=== PATIENT | female | born 1970 | race American Indian/Alaskan Native ===

== ENCOUNTER 2021-05-05 12:37 | Emergency (ER) | payer SELFPAY ==
[2021-05-05 13:29] VITALS: BP 139/73
[2021-05-05] MEDS ORDERED: KETOROLAC 60 MG/2 ML INJ IM ONE (14:39)
--- NOTE | 2021-05-05 16:03 | Cat Scan Report ---
CT head/brain wo con INDICATION: posterior head pain. TECHNIQUE: All CT scans at this location are performed using CT dose reduction for ALARA by means of automated e xposure control. COMPARISON: None available. FINDINGS: There is no evidence of hemorrhage, hydrocephalus, brain edema, or mass effect/mass lesion. There is overall normal brain formation and brain volume for the patient's age. Ventricular and cisternal/sulc al size is normal for age. The included paranasal sinuses and mastoid air cells are clear. The orbits appear unremarkable. IMPRESSION: 1. No acute findings. Signer Name: Jonathan Meek MD Signed: 05/05/2021 3:58 PM Workstation Name: [id number]
--- NOTE | 2021-05-05 16:04 | Emergency Department Report ---
ED General Adult HPI - General Chief complaint: Neck Pain/Injury Stated complaint: HEAD/NECK/BORIS SHOULDER PAIN Time Seen by Provider: 05/05/21 13:49 Source: patient Mode of arrival: Ambulatory Limitations: No Limitations - History of Present Illness Initial comments: 51-year-old -Malagasy female patient presents with complaints of upper neck pain and headache for the past week and a half. She reports a history of hypertension and neck surgery. She denies any new injuries, head trauma, loss of consciousness, numbness/tingling/weakness in her limbs, difficulty with speech/ambulation, or memory loss. She states since her symptoms started, she has had fogginess in her thinking. Patient states headaches are now normal for her. She has not tried any OTC medications for symptoms. Neck pain is described as a tightness and worsens with movement. Patient also denies any fever/chills/sweats, cough, or difficulty with leg movement. Severity scale (0 -10): 8 - Related Data Previous Rx's Medication Instructions Recorded Last Taken Type Diclofenac Sodium 50 mg PO TID PRN #21 tablet. 05/05/21 Unknown Rx methOCARBAMOL [Robaxin TAB] 500 - 1,000 mg PO TID PRN #30 05/05/21 Unknown Rx tablet Allergies Allergy/AdvReac Type Severity Reaction Status Date / Time sulfamethoxazole Allergy Hives Verified 05/05/21 13:26 [From Bactrim] trimethoprim [From Bactrim] Allergy Hives Verified 05/05/21 13:26 ED Review of Systems ROS: Stated complaint: HEAD/NECK/BORIS SHOULDER PAIN Other details as noted in HPI Constitutional: denies: chills, diaphoresis, fever, malaise, weakness Eyes: denies: vision change Respiratory: denies: cough, shortness of breath Cardiovascular: denies: chest pain Gastrointestinal: denies: abdominal pain, nausea, vomiting Musculoskeletal: denies: joint swelling Skin: denies: change in color Neurological: headache. denies: weakness, numbness, paresthesias, abnormal gait Hematological/Lymphatic: denies: swollen glands ED Past Medical Hx - Past Medical History Hx Hypertension: Yes - Surgical History Additional Surgical History: NECK 1 1/2 YEAR AGO - Medications Home Medications: Home Medications Medication Instructions Recorded Confirmed Last Taken Type Diclofenac Sodium 50 mg PO TID PRN #21 tablet. 05/05/21 Unknown Rx methOCARBAMOL [Robaxin TAB] 500 - 1,000 mg PO TID PRN #30 05/05/21 Unknown Rx tablet ED Physical Exam - General Limitations: No Limitations General appearance: alert, in no apparent distress, obese - Head Head exam: Present: atraumatic, normocephalic - Eye Eye exam: Present: normal appearance, PERRL, EOMI. Absent: scleral icterus - Neck Neck exam: Present: tenderness (Upper vertebral tenderness to palpation noted and bilateral paraspinal muscle tenderness noted), full ROM, other (Negative Brudzinski and Kernig's signs). Absent: meningismus - Respiratory Respiratory exam: Present: normal lung sounds bilaterally. Absent: respiratory distress - Cardiovascular Cardiovascular Exam: Present: regular rate, normal rhythm. Absent: systolic murmur, diastolic murmur, rubs, gallop - Extremities Exam Extremities exam: Present: full ROM - Back Exam Back exam: Present: normal inspection - Neurological Exam Neurological exam: Present: alert, oriented X3, CN II-XII intact, normal gait. Absent: motor sensory deficit - Expanded Neurological Exam Expanded Cerebellar function: Finger to Nose: Normal, Heel to Velasco: Normal, Romberg: Normal Sensory exam: Upper Extremity Light Touch: Normal, Lower Extremity Light Touch: Normal Motor strength exam: RUE: 5, LUE: 5, RLE: 5, LLE: 5 Best Eye Response (Caio): (4) open spontaneously Best Motor Response (Lyle): (6) obeys commands Best Verbal Response (Lyle): (5) oriented Caio Total: 15 - Psychiatric Psychiatric exam: Present: normal affect, normal mood - Skin Skin exam: Present: warm, dry, intact, normal color. Absent: rash ED Course Vital Signs 05/05/21 05/05/21 13:25 14:59 Temperature 98.2 F Pulse Rate 83 Respiratory 20 16 Rate Blood Pressure 139/73 O2 Sat by Pulse 98 Oximetry ED Medical Decision Making - Medical Decision Making 51-year-old -Malagasy female patient presents with complaints of upper neck pain and headache for the past week and a half. She reports a history of hypertension and neck surgery. She denies any new injuries, head trauma, loss of consciousness, numbness/tingling/weakness in her limbs, difficulty with speech/ambulation, or memory loss. She states since her symptoms started, she has had fogginess in her thinking. Patient states headaches are now normal for her. She has not tried any OTC medications for symptoms. Neck pain is described as a tightness and worsens with movement. Patient also denies any fever/chills/sweats, cough, or difficulty with leg movement. Patient rates her headache as 8/10 in severity Patient is neurologically intact on exam. CT head is negative for any acute intracranial abnormalities. Patient given Toradol and states her symptoms have resolved. Her vitals are within normal limits, she is well-appearing, she is stable for discharge home. Patient to follow-up with her PCP in 3 days. Strict return precautions were discussed in detail with patient who verbalizes understanding. Critical care attestation.: If time is entered above; I have spent that time in minutes in the direct care of this critically ill patient, excluding procedure time. ED Disposition Clinical Impression: Acute tension headache, Neck pain Disposition: DC- TO HOME OR SELFCARE Is pt being admited?: No Condition: Stable Instructions: Tension Headache, Adult, Neck Exercises Prescriptions: Diclofenac Sodium 50 mg PO TID PRN #21 tablet. PRFloresita Reason: Pain methOCARBAMOL [Robaxin TAB] 500 - 1,000 mg PO TID PRN #30 tablet PRN Reason: Muscle spasm/tightness Referrals: PRIMARY CARE, [Referring] - 3-5 Days
[2021-05-05] MEDS ORDERED: dexAMETHasone 4 MG/ML VIAL IM STA (16:09)
== END 2021-05-05 16:36 | disposition home or self-care (01) ==
LOC: ED 12:37
DX: G44.209 Tension-type headache, unspecified, not intractable (principal); M54.2 Cervicalgia; I10 Essential (primary) hypertension; Z79.899 Other long term (current) drug therapy; Z88.2 Allergy status to sulfonamides; Z88.8 Allergy status to other drugs, medicaments and biological substances; Z98.890 Other specified postprocedural states
CPT/HCPCS: 70450; 96372; 99283; J1100; J1885

== ENCOUNTER 2021-09-27 08:28 | Emergency (ER) | payer BC ==
--- NOTE | 2021-09-27 09:30 | Emergency Department Report ---
ED Dysuria HPI - HPI Stated Complaint: FREQUENT URINE/RT HIP PAIN Time Seen by Provider: 09/27/21 09:29 Location of Discomfort: Other Severity: Mild Symptoms: Dysuria: No, Frequency: No, Suprapubic Pain: No, Flank Pain: No, Fever: No, Hematuria: No, Abdominal Pain: No, Previous UTI's: No Other History: 51 YO COME TO ER WITH URINARY FREQUENCY WITH PAIN RADIATING UP TO RIGHT HIP. NO FEVER/CHILLS. NO N/V/D. AMBULATORY TO ER ED Review of Systems ROS: Stated complaint: FREQUENT URINE/RT HIP PAIN Other details as noted in HPI Comment: All other systems reviewed and negative ED Past Medical Hx - Past Medical History Previous Medical History?: Yes Hx Hypertension: Yes - Surgical History Past Surgical History?: Yes Additional Surgical History: NECK 1 1/2 YEAR AGO - Family History Family history: no significant - Social History Smoking Status: Never Smoker Substance Use Type: None - Medications Home Medications: Home Medications Medication Instructions Recorded Confirmed Last Taken Type Cyclobenzaprine [Flexeril] 10 mg PO TID PRN #10 tablet 09/27/21 Unknown Rx Ibuprofen [Motrin] 800 mg PO Q8HR PRN #30 tablet 09/27/21 Unknown Rx predniSONE [Deltasone] 20 mg PO DAILY #5 tablet 09/27/21 Unknown Rx Dysuria Exam - Exam General: Vital signs noted. No distress. Alert and acting appropriately. Exam: Yes Moist Mucous Membranes, No CVA Tenderness, No Abdominal Tenderness, No Rigidity or Guarding ED Medical Decision Making - Medical Decision Making Vital Signs 09/27/21 09:31 Temperature 98.4 F Pulse Rate 69 Respiratory 16 Rate Blood Pressure 124/47 [Right] O2 Sat by Pulse 100 Oximetry Lab Results 09/27/21 Range/Units Unknown Urine Color Yellow (Yellow) Urine Turbidity Clear (Clear) Urine pH 6.0 (5.0-7.0) Ur Specific [place] 1.016 (1.003-1.030) Urine Protein <15 mg/dl (Negative) mg/dL Urine Glucose (UA) Neg (Negative) mg/dL Urine Ketones Neg (Negative) mg/dL Urine Blood Neg (Negative) Urine Nitrite Neg (Negative) Urine Bilirubin Neg (Negative) Urine Urobilinogen < 2.0 (<2.0) mg/dL Ur Leukocyte Esterase Neg (Negative) Urine WBC (Auto) 2.0 (0.0-6.0) /HPF Urine RBC (Auto) 1.0 (0.0-6.0) /HPF U Epithel Cells (Auto) 4.0 (0-13.0) /HPF Urine Bacteria (Auto) 1+ (Negative) /HPF Urine Mucus Few /HPF UA NOTED NO EVIDENCE STONE/UTI 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 NO TRAUMA OR FALL. WILL TREAT FOR MUSCULOSKELETAL PAIN AND SHE WILL FOLLOW UP WITH DR KELLY. SHE DEFERRED XRAY AT THIS TIME DC HOME WITH DC PLAN OF CARE INCLUDING DIET, ACTIVITY, MEDS AND FOLLOW UP. SHE VERBALIZES UNDERSTANDING OF PLAN OF CARE. - Differential Diagnosis RO UTI Critical care attestation.: If time is entered above; I have spent that time in minutes in the direct care of this critically ill patient, excluding procedure time. ED Disposition Clinical Impression: Right hip pain, Urinary frequency Disposition: 01 HOME / SELF CARE / HOMELESS Is pt being admited?: No Does the pt Need Aspirin: No Condition: Stable Instructions: Abdominal Pain (ED) Additional Instructions: FOLLOW UP WITH DR KELLY WE DISCUSSED MEDS ORDERED TODAY Prescriptions: predniSONE [Deltasone] 20 mg PO DAILY #5 tablet Cyclobenzaprine [Flexeril] 10 mg PO TID PRN #10 tablet PRN Reason: Muscle Spasm Ibuprofen [Motrin] 800 mg PO Q8HR PRN #30 tablet PRN Reason: Pain, Moderate (4-6) Referrals: CORY KELLY MD [Staff Physician] - 3-5 Days Forms: Work/School Release Form(ED) Time of Disposition: 12:27
[2021-09-27 09:32] VITALS: BP 124/47
[2021-09-27 12:12] LABS: Bacteria,Urine 1+ /HPF (Negative); Bilirubin,Urine NEG (Negative); Blood,Urine NEG (Negative); Color,Urine Yellow (Yellow); Mucus,Urine FEW /HPF; Protein,Urine <15 mg/dL mg/dL (Negative); Urobilinogen,Urine < 2.0 mg/dL (<2.0)
[2021-09-27] MEDS ORDERED: KETOROLAC 60 MG/2 ML INJ IM ONE (12:30)
== END 2021-09-27 12:34 | disposition home or self-care (01) ==
LOC: ED 08:28
DX: R35.0 Frequency of micturition (principal); M25.551 Pain in right hip; I10 Essential (primary) hypertension
CPT/HCPCS: 81001; 99283

== ENCOUNTER 2022-04-04 09:04 | Emergency (ER) | payer SELFPAY ==
--- NOTE | 2022-04-04 10:46 | Emergency Department Report ---
Chief Complaint: Chest Pain Stated Complaint: CHEST PAIN/SHOULDER PAIN - HPI History of Present Illness: 51 Y f report chest pain today with right side neck pain - ROS Review of Systems: right side chest pain - Exam Vital Signs: Vital Signs 04/04/22 10:38 Temperature 97.8 F Pulse Rate 63 Respiratory 16 Rate Blood Pressure 141/100 O2 Sat by Pulse 99 Oximetry MSE screening note: Focused history and physical exam performed. Due to findings the following was ordered: Active Orders 24 hr Category Date Time Status EKG (12 lead) Stat Cardiology 04/04/22 10:43 Ordered Tech to do EKG .once Care 04/04/22 10:43 Ordered Complete Blood Count Auto Diff Stat Lab 04/04/22 10:43 Ordered Comprehensive Metabolic Panel Stat Lab 04/04/22 10:43 Ordered Troponin T Stat Lab 04/04/22 10:43 Ordered XR chest 1V ap Stat X-Ray 04/04/22 10:43 Ordered ED Disposition for MSE Condition: Stable
--- NOTE | 2022-04-04 11:19 | XRay Report ---
CHEST 2 VIEWS INDICATION / CLINICAL INFORMATION: chest pain. COMPARISON: None available. FINDINGS: SUPPORT DEVICES: None. HEART / MEDIASTINUM: No significant abnormality. LUNGS / PLEURA: No significant pulmonary or pleural abnormality. No pneumothorax. ADDITIONAL FINDINGS: No significant additional findings. IMPRESSION: 1. No acute findings. Signer Name: Jonathan Meek MD Signed: 04/04/2022 11:14 AM Workstation Name: [id number]
--- NOTE | 2022-04-04 11:56 | Emergency Department Report ---
ED Chest Pain HPI - General Chief Complaint: Chest Pain Stated Complaint: CHEST PAIN/SHOULDER PAIN Time Seen by Provider: 04/04/22 11:52 Source: patient Mode of arrival: Ambulatory Limitations: No Limitations - History of Present Illness Initial Comments: Patient is a 51-year-old female that comes to the emergency room complaining of right-sided chest and neck pain. She works as a WATERWORKS OPERATOR. She denies any nausea vomiting or diaphoresis. She states the pain is sharp and dull and radiates to her right arm. She denies fever. Endorses chills. Has a history of hypertension. She also smokes cigarettes. She is mildly obese. She has had previous neck surgery for spinal fusion. Her mother and father are both of cancer. She has no known family history of coronary artery disease. She states the pain is made better by warm baths and is worse with movement. MD Complaint: chest pain -: Gradual, days(s) Pain Location: right chest Pain Radiation: RUE Severity: mild Quality: tightness, sharp Consistency: intermittent Improves With: remaining still Worsens With: movement re: denies: nausea, vomting, diaphoresis, dyspnea, sense of impending doom Other Symptoms: denies: cough, fever, syncope, rash, acid taste in mouth, leg swelling, palpitations, burping Treatments Prior to Arrival: none Aspirin use within the Past 7 Days: (0) No - Related Data On Oral Contraceptives: No Previous Rx's Medication Instructions Recorded Last Taken Type Cyclobenzaprine [Flexeril] 10 mg PO TID PRN #10 tablet 09/27/21 Unknown Rx Ibuprofen [Motrin] 800 mg PO Q8HR PRN #30 tablet 09/27/21 Unknown Rx predniSONE [Deltasone] 20 mg PO DAILY #5 tablet 09/27/21 Unknown Rx Allergies Allergy/AdvReac Type Severity Reaction Status Date / Time sulfamethoxazole Allergy Hives Verified 04/04/22 10:41 [From Bactrim] trimethoprim [From Bactrim] Allergy Hives Verified 04/04/22 10:41 Heart Score - HEART Score History: Slightly suspicious EKG: Normal Age: 45-65 Risk factors: 1-2 risk factors Troponin: < normal limit HEART Score: 2 - EKG Read Time Time EKG Completed: 10:42 EKG Read Time: 10:42 - Critical Actions Critical Actions: 0-3 pts:0.9-1.7%risk of adverse cardiac event.Candidate for discharge ED Review of Systems ROS: Stated complaint: CHEST PAIN/SHOULDER PAIN Other details as noted in HPI Comment: All other systems reviewed and negative ED Past Medical Hx - Past Medical History Previous Medical History?: Yes Hx Hypertension: Yes - Surgical History Past Surgical History?: Yes Additional Surgical History: NECK 1 1/2 YEAR AGO - Family History Family history: other (Mother and father of cancer) - Social History Smoking Status: Current Every Day Smoker Substance Use Type: None - Medications Home Medications: Home Medications Medication Instructions Recorded Confirmed Last Taken Type Cyclobenzaprine [Flexeril] 10 mg PO TID PRN #10 tablet 09/27/21 Unknown Rx Ibuprofen [Motrin] 800 mg PO Q8HR PRN #30 tablet 09/27/21 Unknown Rx predniSONE [Deltasone] 20 mg PO DAILY #5 tablet 09/27/21 Unknown Rx ED Physical Exam - General Limitations: No Limitations General appearance: alert, in no apparent distress - Head Head exam: Present: atraumatic, normocephalic - Eye Eye exam: Present: normal appearance - ENT ENT exam: Present: mucous membranes moist - Neck Neck exam: Present: normal inspection - Respiratory Respiratory exam: Present: normal lung sounds bilaterally. Absent: respiratory distress - Cardiovascular Cardiovascular Exam: Present: regular rate, normal rhythm. Absent: systolic m urmur, diastolic murmur, rubs, gallop - GI/Abdominal GI/Abdominal exam: Present: soft, normal bowel sounds - Extremities Exam Extremities exam: Present: normal inspection - Back Exam Back exam: Present: normal inspection - Neurological Exam Neurological exam: Present: alert, oriented X3 - Psychiatric Psychiatric exam: Present: normal affect, normal mood - Skin Skin exam: Present: warm, dry, intact, normal color. Absent: rash ED Course Vital Signs 04/04/22 10:38 Temperature 97.8 F Pulse Rate 63 Respiratory 16 Rate Blood Pressure 141/100 O2 Sat by Pulse 99 Oximetry LINETTE score - Linette Score Age > 65: (0) No Aspirin use within the Past 7 Days: (0) No 3 or more CAD Risk Factors: (0) No 2 or more Angina events in past 24 hrs: (0) No Known CAD with more than 50% Stenosis: (0) No Elevated Cardiac Markers: (0) No ST Deviation Greater than 0.5mm: (0) No LINETTE Score: 0 ED Medical Decision Making - Lab Data Result diagrams: 04/04/22 12:32 04/04/22 12:32 - EKG Data -: EKG Interpreted by Me EKG shows normal: sinus rhythm - EKG Data When compared to previous EKG there are: no significant change Interpretation: no acute changes - Radiology Data Radiology results: report reviewed, image reviewed No acute process - Medical Decision Making Vital Signs 04/04/22 10:38 Temperature 97.8 F Pulse Rate 63 Respiratory 16 Rate Blood Pressure 141/100 O2 Sat by Pulse 99 Oximetry Patient's blood pressure noted to be elevated on exam. She reports that she takes losartan and HCTZ Patient has been counseled on cigarette smoking cessation On discharge exam patient denied any pain. Diagnostic studies including EKG chest x-ray labs reviewed with patient. Vital Signs 04/04/22 10:38 Temperature 97.8 F Pulse Rate 63 Respiratory 16 Rate Blood Pressure 141/100 O2 Sat by Pulse 99 Oximetry Labs 04/04/22 04/04/22 12:32 12:32 WBC 6.9 RBC 4.68 Hgb 14.6 H Hct 43.6 H MCV 93 MCH 31 MCHC 34 RDW 14.4 Plt Count 404 Lymph % (Auto) 40.4 H [place] % (Auto) 7.5 H Eos % (Auto) 0.9 Baso % (Auto) 1.0 Lymph # (Auto) 2.8 [place] # (Auto) 0.5 Eos # (Auto) 0.1 Baso # (Auto) 0.1 Seg Neutrophils % 50.2 Seg Neutrophils # 3.4 Sodium 139 Potassium 4.4 Chloride 100.3 Carbon Dioxide 26 Anion Gap 17 BUN 16 Creatinine 0.8 Estimated GFR > 60 BUN/Creatinine Ratio 20 Glucose 79 Calcium 9.7 Total Bilirubin 0.30 AST 14 ALT 13 Alkaline Phosphatase 68 Troponin T < 0.010 Total Protein 6.8 Albumin 4.6 Albumin/Globulin Ratio 2.1 Patient verbalizes understanding of discharge plan of care including diet, activity, medications and follow-up. She is going home with conservative management including [id number] pain relief. Warm compresses and warm baths. She has been given a follow-up with primary care. She is also been instructed to stop smoking and to take her blood pressure medications as prescribed. She verbalizes understanding - Differential Diagnosis Musculoskeletal versus ACS Critical care attestation.: If time is entered above; I have spent that time in minutes in the direct care of this critically ill patient, excluding procedure time. ED Disposition Clinical Impression: Atypical chest pain, Hx of malignant hypertension, Obese, Smoker Disposition: 01 HOME / SELF CARE / HOMELESS Is pt being admited?: No Does the pt Need Aspirin: No Condition: Stable Instructions: Nonspecific Chest Pain, Adult Additional Instructions: Continue your home blood pressure medicine follow up with pcp referral below labs are all normal today Referrals: RANDOLPH DONAHUE MD [Staff Physician] - 3-5 Days Time of Disposition: 13:59
--- NOTE | 2022-04-04 12:47 | Electrocardiograph Report ---
[facility] Test Date: 2022-04-04 Test Time: 10:42:47 Pat Name: FEBRUARY VIKTORIA Department: Room: Gender: F Damage Adjuster: ROBERTO : 1970 Requested By: DAWOOD CONTRERAS Order Number: [id number] Reading MD: Jitendra Melgar Measurements Intervals [place] Rate: 58 P: 68 [place]: 137 QRS: 44 QRSD: 72 T: 38 QT: 397 QTc: 392 Interpretive Statements Sinus rhythm No previous ECG available for comparison Electronically Signed On 04-04-2022 12:47:08 EDT by Jitendra Melgar
[2022-04-04 13:18] LABS: Basophils # (Auto) 0.1 K/mm3 (0.0-0.1); Eosinophils # (Auto) 0.1 K/mm3 (0.0-0.4); Eosinophils % (Auto) 0.9 % (0.0-4.3); Hematocrit 43.6 % (30.3-42.9); Hemoglobin 14.6 gm/dl (10.1-14.3); Lymphocytes # (Auto) 2.8 K/mm3 (1.2-5.4); Lymphocytes % (Auto) 40.4 % (13.4-35.0); Mean Corpuscular HGB Conc 34 % (30-34); Mean Corpuscular Volume 93 fl (79-97); Monocytes # (Auto) 0.5 K/mm3 (0.0-0.8); Monocytes % (Auto) 7.5 % (0.0-7.3); Platelet Count 404 K/mm3 (140-440); Red Blood Count 4.68 M/mm3 (3.65-5.03); Red Cell Distribution Width 14.4 % (13.2-15.2)
[2022-04-04 13:41] LABS: Alanine Aminotransferase 13 units/L (7-56); Albumin 4.6 g/dL (3.9-5); BUN/Creatinine Ratio 20; Blood Urea Nitrogen 16 mg/dL (7-17); Calcium 9.7 mg/dL (8.4-10.2); Hemolysis Index 42
[2022-04-04 15:27] VITALS: BP 140/100
== END 2022-04-04 15:25 | disposition home or self-care (01) ==
LOC: ED 09:04
DX: R07.89 Other chest pain (principal); I10 Essential (primary) hypertension; E66.9 Obesity, unspecified; F17.200 Nicotine dependence, unspecified, uncomplicated; Z88.3 Allergy status to other anti-infective agents
CPT/HCPCS: 36415; 71045; 71046; 80053; 84484; 85025; 93005; 99283